=== PATIENT | female | born 1980 | race Two or more races ===

== ENCOUNTER 2020-06-01 14:13 | Emergency (ER) | payer BC, MEDICAID ==
[2020-06-01] MEDS ORDERED: ONDANSETRON 4 MG TAB.RAPDIS PO ONE (15:17)
--- NOTE | 2020-06-01 15:18 | ER Document Report ---
ED GI/ - General Chief Complaint: Vomiting Stated Complaint: VOMITING Time Seen by Provider: 06/01/20 15:06 Notes: CHIEF COMPLAINT: Vomiting for 2 days HPI: 39-year-old female presenting to the emergency department for evaluation of vomiting over the last 2 days. No cough chest pain shortness of breath or fever. No dysuria. Patient states that she had exposure to someone who tested COVID +3 days ago. Began with nausea 2 days ago with 1 episode of vomiting 2 days ago 3 episodes today. Denies any abdominal pain. Was concerned about the COVID exposure causing her symptoms. ROS: See HPI - all other systems were reviewed and are otherwise negative Constitutional: no fever Eyes: no drainage, no blurred vision ENT: no runny nose, no sore throat Cardiovascular: no chest pain Resp: no SOB, no cough GI: + vomiting, no diarrhea, no abdominal pain : no dysuria Integumentary: no rash Allergy: no hives Musculoskeletal: no extremity pain or swelling Neurological: no numbness/tingling, no weakness MEDICATIONS: I agree with the patient medications as charted by the RN. ALLERGIES: I agree with the allergies as charted by the RN. PAST MEDICAL HISTORY/PAST SURGICAL HISTORY: Reviewed and agree as charted by RN. SOCIAL HISTORY: Reviewed and agree as charted by RN. FAMILY HISTORY: No significant familial comorbid conditions directly related to patient complaint EXAM: Reviewed vital signs as charted by RN. CONSTITUTIONAL: Alert and oriented and responds appropriately to questions. Well-appearing; well-nourished HEAD: Normocephalic; atraumatic EYES: PERRL; Conjunctivae clear, sclerae non-icteric ENT: normal nose; no rhinorrhea; moist mucous membranes; pharynx without lesions noted, no uvula edema or deviation, no tonsillar hypertrophy, phonation normal NECK: Supple without meningismus; non-tender; no cervical lymphadenopathy, no masses CARD: RRR; no murmurs, no clicks, no rubs, no gallops; symmetric distal pulses RESP: Normal chest excursion without splinting or tachypnea; breath sounds clear and equal bilaterally; no wheezes, no rhonchi, no rales, pulse oximetry 98% on room air not hypoxic ABD/GI: Obese, normal bowel sounds; non-distended; soft, non-tender, no rebound, no guarding; no palpable organomegaly or masses. BACK: The back appears normal and is non-tender to palpation, there is no CVA tenderness EXT: Normal ROM in all joints; non-tender to palpation; no cyanosis, no effusions, no edema SKIN: Normal color for age and race; warm; dry; good turgor; no acute lesions noted NEURO: Moves all extremities equally; Motor and sensory function intact PSYCH: The patient's mood and manner are appropriate. Grooming and personal hygiene are appropriate. MDM: 39-year-old female presenting with nausea vomiting over the last 2 days with positive COVID exposure 3 days ago. She is afebrile. Has no abdominal pain on exam. Will check urinalysis she is on her menstrual cycle currently. Will give Zofran for nausea will obtain COVID test. If urine does not show evidence of infection no indication for further imaging studies or lab work given lack of abdominal pain or fever will have patient self quarantine at home pending COVID result TRAVEL OUTSIDE OF THE [place] IN LAST 30 DAYS: No - Related Data Allergies/Adverse Reactions: Penicillins Allergy (Verified 10/25/15 09:58) Past Medical History - Social History Smoking Status: Unknown if Ever Smoked Family History: Reviewed & Not Pertinent Renal/ Medical History: Reports: Hx Ectopic - Immunizations Immunizations up to date: Yes Hx Diphtheria, Pertussis, Tetanus Vaccination: No Physical Exam - Vital signs Vitals: Temp Pulse Resp BP Pulse Ox 97.9 F 67 16 127/76 H 99 06/01/20 15:00 06/01/20 15:00 06/01/20 15:00 06/01/20 15:00 06/01/20 15:00 Course - Re-evaluation Re-evalutation: 06/01/20 16:26 Urine negative for acute findings patient is on her menstrual cycle currently. No sign of infection. Will treat symptomatically person under investigation for COVID-19 Zofran for nausea follow-up PCP return for worsening symptoms - Vital Signs Vital signs: Temp Pulse Resp BP Pulse Ox 97.9 F 67 16 127/76 H 99 06/01/20 15:00 06/01/20 15:00 06/01/20 15:00 06/01/20 15:00 06/01/20 15:00 - Laboratory Laboratory results interpreted by me: 06/01/20 15:50 Urine Blood LARGE H Discharge - Discharge Clinical Impression: Person under investigation for COVID-19 Vomiting Qualifiers: Vomiting type: unspecified Vomiting Intractability: non-intractable Nausea presence: with nausea Qualified Code(s): R11.2 - Nausea with vomiting, unspecified Condition: Stable Disposition: HOME, SELF-CARE Additional Instructions: Take Zofran for any recurrent nausea vomiting. Urine did not show evidence of infection today. You are considered a person under investigation for COVID-19 at this time self quarantine at home until you have a test result which usually takes 2 to 5 days. You will be notified by someone from the hospital about your test result. Return for worsening symptoms or intractable vomiting Prescriptions: Ondansetron [Zofran Odt 4 mg Tablet] 1 - 2 tab PO Q4H PRN #15 tab.rapdis PRN Reason: For Nausea/Vomiting
[2020-06-01 15:35] VITALS: BP 127/76
[2020-06-01 16:23] LABS: APPEARANCE,URINE CLEAR; BILIRUBIN,URINE NEGATIVE (NEGATIVE); COLOR,URINE YELLOW; GLUCOSE, URINE NEGATIVE (NEGATIVE); KETONES,URINE NEGATIVE (NEGATIVE); LEUKOCYTE ESTERASE,URINE NEGATIVE (NEGATIVE); NITRITE,URINE NEGATIVE (NEGATIVE); PROTEIN,URINE NEGATIVE (NEGATIVE); URINE SPECIFIC GRAVITY 1.015; UROBILINOGEN,URINE NEGATIVE mg/dL (<2.0)
== END 2020-06-01 16:40 | disposition home or self-care (01) ==
LOC: ER 14:13
DX: R11.2 Nausea with vomiting, unspecified (principal); Z20.828 Contact with and (suspected) exposure to other viral communicable diseases; Z88.0 Allergy status to penicillin
CPT/HCPCS: 99283; 87635; 81025; 81001; S0119; C9803

== ENCOUNTER 2020-08-12 06:01 | Emergency (ER) | payer SELFPAY ==
[2020-08-12 10:12] LABS: APPEARANCE,URINE CLOUDY; BILIRUBIN,URINE NEGATIVE (NEGATIVE); COLOR,URINE YELLOW; GLUCOSE, URINE NEGATIVE (NEGATIVE); KETONES,URINE TRACE mg/dL (NEGATIVE); LEUKOCYTE ESTERASE,URINE MODERATE (NEGATIVE); NITRITE,URINE POSITIVE (NEGATIVE); PROTEIN,URINE 30 mg/dL (NEGATIVE); URINE SPECIFIC GRAVITY 1.023; UROBILINOGEN,URINE NEGATIVE mg/dL (<2.0)
--- NOTE | 2020-08-12 12:08 | ER Document Report ---
Entered by JUJU CORONADO SCRIBE 08/12/20 1024 Acting as scribe for:MICHAEL QUILES MD ED General - General Chief Complaint: Abdominal Pain Stated Complaint: SHORT OF BREATH LOSS OF TASTE/SMELL Mode of Arrival: Ambulatory Information source: Patient Notes: This 39 year old female patient presents to the ED today with complaints of generalized abdominal pain for the past x4 days. Patient also reports burning with urination, poor appetite, loss of taste/smell, constipation, and headache. Denies fever, chills, cough, or sore throat. Patient states that she was last tested for COVID x2 months ago and it was negative. TRAVEL OUTSIDE OF THE [place] IN LAST 30 DAYS: No - Related Data Allergies/Adverse Reactions: Penicillins Allergy (Verified 06/01/20 16:29) Home Medications: nerve pill Past Medical History - General Information source: Patient, [facility] Records - Social History Smoking Status: Former Smoker Smoking Education Provided: No Family History: Reviewed & Not Pertinent Renal/ Medical History: Reports: Hx Ectopic Psychiatric Medical History: Reports: Hx Anxiety, Hx Depression - Immunizations Immunizations up to date: Yes Hx Diphtheria, Pertussis, Tetanus Vaccination: No Review of Systems - Review of Systems Constitutional: See HPI. denies: Chills, Fever EENT: See HPI. denies: Throat pain Cardiovascular: No symptoms reported Respiratory: See HPI. denies: Cough Gastrointestinal: See HPI, Abdominal pain, Constipation, Poor appetite Genitourinary: See HPI, Burning Female Genitourinary: No symptoms reported Musculoskeletal: No symptoms reported Skin: No symptoms reported Hematologic/Lymphatic: No symptoms reported Neurological/Psychological: See HPI, Headaches -: Yes All other systems reviewed and negative Physical Exam - Vital signs Vitals: Temp Pulse Resp BP Pulse Ox 98.0 F 67 20 127/69 H 98 08/12/20 06:09 08/12/20 06:09 08/12/20 06:09 08/12/20 06:09 08/12/20 06:09 - General General appearance: Alert In distress: None - HEENT Head: Normocephalic, Atraumatic Eyes: Normal Pupils: PERRL - Respiratory Respiratory status: No respiratory distress Chest status: Nontender Breath sounds: Normal Chest palpation: Normal - Cardiovascular Rhythm: Regular Heart sounds: Normal auscultation Murmur: No Friction rub: No Gallop: None auscultated - Abdominal Inspection: Normal Distension: No distension Bowel sounds: Normal Tenderness: Nontender - Abdomen soft Organomegaly: No organomegaly - Back Back: Normal, Nontender. No: CVA tenderness - Extremities General upper extremity: Normal inspection General lower extremity: Normal inspection. No: Edema - Neurological Neuro grossly intact: Yes Orientation: AAOx4 Augustin Coma Scale Eye Opening: Spontaneous Coden Coma Scale Verbal: Oriented Coden Coma Scale Motor: Obeys Commands Coden Coma Scale Total: 15 - Psychological Associated symptoms: Normal affect, Normal mood - Skin Skin Temperature: Warm Skin Moisture: Dry Skin Color: Normal Course - Re-evaluation Re-evalutation: 08/12/20 12:05 Patient resting comfortably. - Vital Signs Vital signs: Temp Pulse Resp BP Pulse Ox 98.0 F 67 20 127/69 H 98 08/12/20 06:09 08/12/20 06:09 08/12/20 06:09 08/12/20 06:09 08/12/20 06:09 08/12/20 12:05 Vital signs stable. 08/12/20 12:06 Vital signs stable. - Laboratory Laboratory results interpreted by me: 08/12/20 09:30 Urine Protein 30 H Urine Ketones TRACE H Urine Nitrite POSITIVE H Ur Leukocyte Esterase MODERATE H Urine Ascorbic Acid 40 H 08/12/20 12:06 Laboratory results shows a urinary tract infection. Discharge - Discharge Clinical Impression: Urinary tract infection, Suspected COVID-19 virus infection Condition: Stable Disposition: HOME, SELF-CARE Instructions: Urinary Tract Infection ([facility]), Urinary Anesthetic Agent ([facility]) Prescriptions: Ciprofloxacin HCl [Cipro 500 mg Tablet] 500 mg PO BID #20 tablet Phenazopyridine HCl [Pyridium 200 mg Tablet] 200 mg PO TID #6 tablet I personally performed the services described in the documentation, reviewed and edited the documentation which was dictated to the scribe in my presence, and it accurately records my words and actions.
[2020-08-12 12:22] VITALS: BP 136/91
== END 2020-08-12 12:39 | disposition home or self-care (01) ==
LOC: ER 06:01
DX: U07.1 COVID-19 (principal); N39.0 Urinary tract infection, site not specified; K59.00 Constipation, unspecified; R10.84 Generalized abdominal pain; R63.0 Anorexia; R51.9 Headache, unspecified; Z79.899 Other long term (current) drug therapy; Z88.0 Allergy status to penicillin
CPT/HCPCS: 99283; 87635; 81025; 81001; C9803